=== PATIENT | male | born 1960 | race Caucasian/White ===

== ENCOUNTER → 2016-11-25 | Outpatient (CLI) | payer OTHER ==
--- NOTE | 2016-11-25 18:41 | DX ---
Right Shoulder, 2 views History: Trauma, fall Findings: There is a comminuted right humeral neck fracture. The humeral head remains normally aligne d in the glenoid. Amorphous calcification in the rotator cuff is consistent with calcific tendinopath y. AC joint is normally aligned. Impression: Humeral neck fracture.
== END ==
LOC: BMCIMAGING 17:57
PROVIDERS: ATTEND Family Medicine
DX: S42.291A Other displaced fracture of upper end of right humerus, initial encounter for closed fracture (principal)

== ENCOUNTER → 2016-12-10 | Outpatient (CLI) | payer OTHER ==
--- NOTE | 2016-12-10 13:59 | DX ---
Right Shoulder , 3 Views History: Follow-up fracture , S42.221A Findings: The humeral head remains normally located in the glenoid. Little if any change in position of the right humeral neck fracture. The humeral shaft remains medially displaced and mildly impacted. No periosteal reaction or radiopaque callus is yet identified. Rotator cuff calcification is stable and consistent with chronic underlying calcific tendinopathy. A posterior right eighth rib fracture d eformity is also unchanged and of uncertain chronicity. Impression: Little if any change x3 weeks.
== END ==
LOC: BMCIMAGING 10:49
PROVIDERS: ATTEND Physician Assistant
DX: S42.221A 2-part displaced fracture of surgical neck of right humerus, initial encounter for closed fracture (principal); S22.31XD Fracture of one rib, right side, subsequent encounter for fracture with routine healing